=== PATIENT | male | born 1980 | race Caucasian/White ===

== ENCOUNTER 2018-11-15 21:40 | Emergency (ER) | payer SELFPAY ==
[~2018-11-15] VITALS: Ht 183 cm; Wt 129.0 kg
[2018-11-15] MEDS ORDERED: morphine INJ 10 MG/ML 1ML (SYR OR VIAL) IVP STA (22:04)
[2018-11-15] MEDS ORDERED: methylPREDNISolone 125 MG (Solu-MEDROL) VIAL IM ONE (22:15)
[2018-11-15] MEDS ORDERED: ACETAMINOPHEN 325 MG TABLET PO ONE (22:15)
[2018-11-15] MEDS ORDERED: morphine INJ 10 MG/ML 1ML (SYR OR VIAL) IM STA (22:15)
[2018-11-15] MEDS ORDERED: KETOROLAC 60 MG/2 ML VIAL IM ONE (22:15)
--- NOTE | 2018-11-15 22:15 | ED Back Pain ---
General Chief Complaint: Back Problems Stated Complaint: BACK PAIN Nursing Triage Note: PT AMUBULATE TO ROOM FS02 WITH C/O BACK PAIN STARTING THREE DAYS AGO. Nursing Sepsis Screen: No Definite Risk History of Present Illness Date Seen by Provider: Nov 15, 2018 Time Seen by Provider: 22:14 Initial Comments The patient is a 46-year-old male with no known medical history but who does not go to the doctor on a routine basis. He is not a tobacco smoker. He presents with concern for acute onset of low back pain with radiation around the right buttock and down the right leg posteriorly, all with onset 3 days ago, without any injury or trauma that the patient can remember. He has never had this discomfort before. 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 Discomfort is worse with ambulation and standing and better with rest. No associated fevers, nausea or vomiting, abdominal pain of any kind, groin pain, flank pain, dysuria or hematuria, loss of bowel or bladder control, saddle anesthesia, new lower extremity weakness, numbness, tingling, new urinary retention, use of intravenous drugs. Patient has been trying Flexeril at home without relief of symptoms. Allergies and Home Medications Allergies Coded Allergies: Penicillins (Unverified Allergy, Unknown, 11/15/18) amoxicillin (Unverified Allergy, Unknown, 11/15/18) Home Medications Acetaminophen 500 Mg Tablet, 1,000 MG PO Q8H Prescribed by: FLORENCIA VALLE on 11/15/182226 Ibuprofen 800 Mg Tablet, 800 MG PO Q8H PRN for PAIN Prescribed by: FLORENCIA VALLE on 11/15/182226 Methylprednisolone 4 Mg Tab.ds.pk, 4 MG PO UD PER DOSE PACK INSTRUCTIONS Prescribed by: FLOERNCIA VALLE on 11/15/182229 [morphine] , 15 MG PO Q6H Prescribed by: FLORENCIA VALLE on 11/15/182229 Patient Home Medication List Home Medication List Reviewed: Yes Review of Systems Constitutional: see HPI All Other Systems Reviewed Negative Unless Noted: Yes (Negative excepted noted.) Past Evikuvp-Pxkowx-Aqasdn Hx Past Med/Social Hx: Reviewed Nursing Past Med/Soc Hx Patient Social History Alcohol Use: Denies Use Recreational Drug Use: No Smoking Status: Never a Smoker 2nd Hand Smoke Exposure: No Recent Foreign Travel: No Contact w/Someone Who Travel: No Recent Infectious Disease Expo: No Recent Hopitalizations: No Physical Abuse: No Sexual Abuse: No Mistreated: No Fear: No Seasonal Allergies Seasonal Allergies: No Past Medical History Surgeries: Yes (FINGER SEWED BACK ON.) Adenoidectomy, Tonsillectomy Respiratory: No Cardiac: No Neurological: No Genitourinary: No Gastrointestinal: No Musculoskeletal: No Endocrine: No HEENT: No Cancer: No Psychosocial: Yes ADD/ADHD Integumentary: Yes Psoriasis Blood Disorders: No Family Medical History Reviewed Nursing Family Hx Physical Exam Vital Signs Vital Signs - First Documented 11/15/18 21:47 Temp 36.7 Pulse 114 Resp 19 B/P (MAP) 142/106 (118) Pulse Ox 99 O2 Delivery Room Air Capillary Refill : Less Than 3 Seconds Height, Weight, BMI Height: '" Weight: lbs. oz. kg; 38.00 BMI Method: General Appearance: No Apparent Distress This is an older male appearing nontoxic and in no acute distress. Head is normocephalic and atraumatic. Neck is supple and nontender. Oropharynx is moist. Lungs are clear to auscultation at all stations. There is a normal S1 and S2 without rubs or gallops and capillary refill is appropriate, less than 2 seconds globally. Abdomen is soft, nontender and nondistended. Skin is warm and dry without cyanosis, clubbing or edema. Psychiatrically, the patient didn't strays appropriate mood and affect and is alert. Examination of the back reveals no erythema, warmth, swelling, tenderness or other acute abnormality. Patient states pain is "deep inside". Bilateral lower extremities are neurovascularly intact with strength 5 out of 5, sensation intact to light touch in all nerve distributions, DP and PT pulses 2+, capillary refill less than 2 seconds, feet warm and well perfused. Straight leg raise is positive on the right. Progress/Results/Core Measures Results/Orders My Orders Orders - FLORENCIA VALLE MD Ketorolac Injection (Toradol Injection) (11/15/18 22:15) Acetaminophen Tablet/Caplet (Tylenol T (11/15/18 22:15) Methylprednisolone Sod Succ (Solu-Medrol (11/15/18 22:15) Morphine Injection (Morphine Injection (11/15/18 22:04) Morphine Injection (Morphine Injection (11/15/18 22:15) Medications Given in ED Current Medications Medications Dose Ordered Sig/Brandon Route Start Time Stop Time Status Last Admin Dose Admin Acetaminophen 975 mg ONCE ONCE PO 11/15/18 22:15 11/15/18 22:16 DC 11/15/18 22:26 975 MG Ketorolac Tromethamine 60 mg ONCE ONCE IM 11/15/18 22:15 11/15/18 22:16 DC 11/15/18 22:27 60 MG Methylprednisolone Sodium Succinate 125 mg ONCE ONCE IM 11/15/18 22:15 11/15/18 22:16 DC 11/15/18 22:27 125 MG Vital Signs/I&O 11/15/18 21:47 Temp 36.7 Pulse 114 Resp 19 B/P (MAP) 142/106 (118) Pulse Ox 99 O2 Delivery Room Air Blood Pressure Mean: 118 Progress Progress Note : Time: 22:24 Progress Note Clinical examination reassuring. 46-year-old male who presents with atraumatic low back pain with radiation down the right leg, suspicious for lumbosacral radiculopathy. No red flags by history or examination for back pain today. We will treat as per nursing flow sheet and will plan for discharge with medication for symptomatically management and referral to primary care for close follow-up within the next few days. Patient is counseled that he may well need an MRI if symptoms don't improve with conservative treatment with anti-inflammatories and adjunctive pain medication. He understands and agrees. Update 2240: Patient is feeling better and is ready to go home. We'll proceed with discharge home at this time. As above, he is counseled to follow up very cl ose with primary care we'll provide referral information so that he may be seen in follow-up in the next few days. He understands that if he feels worse is that of better or develops other new symptoms of concern that he will need to return immediately for reevaluation. All questions are answered. Departure Impression Primary Impression: Lumbosacral radiculopathy Disposition: 01 HOME, SELF-CARE Condition: Improved Departure-Patient Inst. Patient Instructions: Radiculopathy, Low Back Pain (DC) Scripts [morphine] No Conflict Check 15 MG PO Q6H for Breakthrough Pain, #11 TAB Prov: FLORENCIA VALLE MD 11/15/18 Methylprednisolone (Medrol) 4 Mg Tab.ds.pk 4 MG PO UD for 6 Days, #21 PKG PER DOSE PACK INSTRUCTIONS Prov: FLORENCIA VALLE MD 11/15/18 Acetaminophen (Acetaminophen) 500 Mg Tablet 1000 MG PO Q8H for Pain, #30 TAB Prov: FLORENCIA VALLE MD 11/15/18 Ibuprofen (Ibuprofen) 800 Mg Tablet 800 MG PO Q8H PRN for PAIN, #30 TAB 0 Refills Prov: FLORENCIA VALLE MD 11/15/18 FLORENCIA VALLE MD Nov 15, 2018 22:15
[2018-11-15] MEDS ORDERED: ACET-93 PO (22:27)
[2018-11-15] MEDS ORDERED: IBUP-1780 PO (22:27)
[2018-11-15] MEDS ORDERED: morphine PO (22:30)
[2018-11-15] MEDS ORDERED: METH4TAB PO (22:30)
[2018-11-15 22:45] VITALS: BP 138/88
== END 2018-11-15 22:44 | disposition home or self-care (01) ==
LOC: EDBD 21:42 → ER FS 21:42
DX: M54.17 Radiculopathy, lumbosacral region (principal); F90.9 Attention-deficit hyperactivity disorder, unspecified type; Z88.0 Allergy status to penicillin; Z90.89 Acquired absence of other organs
CPT/HCPCS: 99284